=== PATIENT | female | born 1995 | race Caucasian/White ===

== ENCOUNTER 2020-08-13 08:27 | Emergency (ER) | payer SELFPAY ==
[~2020-08-13] VITALS: Ht 154.9 cm; Wt 152.5 kg
[2020-08-13] MEDS ORDERED: normal saline 1000ML IV soln IVB ONE (09:10)
[2020-08-13 10:13] LABS: BASOPHILS % (AUTO) 0.4 % (0-1); EOSINOPHILS # (AUTO) 0.1 X10'3 (0-0.9); EOSINOPHILS % (AUTO) 0.5 % (0-6); HEMATOCRIT 42.1 % (35.0-45.0); HEMOGLOBIN 13.4 g/dl (12.0-16.0); LYMPHOCYTES % (AUTO) 18.3 % (21-51); MEAN CORPUSCULAR HEMOGLOBIN 25.4 PG (27.0-31.0); MEAN CORPUSCULAR HGB CONC 31.9 g/dL (33.0-36.5); MEAN CORPUSCULAR VOLUME 79.5 FL (78-98); MEAN PLATELET VOLUME 8.1 FL (7.4-10.4); MONOCYTES # (AUTO) 0.5 X10'3 (0-0.9); MONOCYTES % (AUTO) 4.5 % (2-12); NEUTROPHILS # (AUTO) 8.4 X10'3 (1.8-7.7); NEUTROPHILS % (AUTO) 76.3 % (42-75); PLATELET COUNT 362 X10'3 (140-440); RED BLOOD COUNT 5.29 X10'6 (4.20-5.60); RED CELL DISTRIBUTION WIDTH 15.2 % (11.5-14.5)
[2020-08-13 10:15] LABS: ALANINE AMINOTRANSFERASE 31 U/L (12-78); ALBUMIN 3.5 G/DL (3.4-5.0); ALBUMIN/GLOBULIN RATIO 0.7 (1.1-1.5); ALKALINE PHOSPHATASE 137 IU/L (46-116); ANION GAP 9 (8-16); ASPARTATE AMINO TRANSFERASE 21 U/L (10-37); BILIRUBIN,TOTAL 0.7 MG/DL (0.1-1.0); BLOOD UREA NITROGEN 10 MG/DL (7-18); BUN/CREATININE RATIO 13.2 (6.6-38.0); CALCIUM 9.5 MG/DL (8.5-10.1); CHLORIDE 100 MMOL/L (99-107); CREATININE 0.76 MG/DL (0.40-0.90); GLUCOSE 95 MG/DL (70-104); POTASSIUM 3.9 MMOL/L (3.5-5.1); SODIUM 136 MMOL/L (135-145); TOTAL CARBON DIOXIDE 26.8 MMOL/L (24-32); TOTAL PROTEIN 8.2 G/DL (6.4-8.2); eGFR > 90 ML/MIN
[2020-08-13 10:20] LABS: URINE HCG NEGATIVE (NEG)
--- NOTE | 2020-08-13 10:37 | NUR ---
Patient back from CT at this time via wheelchair, no signs of distress noted, all safety measures in place.
[2020-08-13 10:44] LABS: CLARITY,URINE CLOUDY (Clear); COLOR,URINE YELLOW (Yellow); GLUCOSE, URINE NEGATIVE (Neg); KETONES,URINE NEGATIVE (Neg); LEUKOCYTE ESTERASE ,URINE NEGATIVE (Neg); NITRITES, URINE NEGATIVE (Neg); OCCULT BLOOD,URINE SMALL (Neg); PROTEIN,URINE NEGATIVE (Neg)
[2020-08-13 10:46] LABS: UA COLLECTION TYPE VOIDED
[2020-08-13 10:55] LABS: MUCUS STRANDS MANY /LPF (Neg); SQUAMOUS EPITHELIAL CELL,UR MANY /LPF (FEW)
[2020-08-13 10:57] LABS: BACTERIA,URINE 2+ /HPF (Neg); RBC,URINE 0-2 /HPF (0-2); WBC,URINE 0-4 /HPF (0-4)
[2020-08-13] MEDS ORDERED: ketorolac trometh. 30mg/ml inj. IV ONE (13:05)
[2020-08-13] MEDS ORDERED: morphine 4 MG/ML inj SYRINge IV ONE (13:05)
--- NOTE | 2020-08-13 17:51 | NUR ---
PER [facility] PATIENT [employer] CONSULTANT TIME UNKNOWN, CALL TO [facility] AND SPOKE WITH RN RINA WHOM AGREED ITS BEST FOR NOC SHIFT RN TO GIVE REPORT TO NOC SHIFT RN FOR IFT. ARACELY WALKER AND ARACELY SMITH AWARE.
[2020-08-13 19:38] VITALS: BP 129/70
== END 2020-08-13 20:40 | disposition short-term general hospital (02) ==
LOC: ER 08:28
DX: G95.89 Other specified diseases of spinal cord (principal); M54.2 Cervicalgia; R20.0 Anesthesia of skin; E66.01 Morbid (severe) obesity due to excess calories; Z68.44 Body mass index [BMI] 60.0-69.9, adult
CPT/HCPCS: 36415; 72125; 80053; 81001; 81025; 85025; 96374; 99291; J1885; J7030